=== PATIENT | female | born 1990 | race Caucasian/White ===

== ENCOUNTER 2016-10-02 17:10 | Emergency (ER) | payer OTHER ==
[2016-10-02] MEDS ORDERED: Lidocaine/Epineph/Tetraca SOL* (LET solution) 4 ML BTL TOPICAL ONE (19:52)
[2016-10-02] MEDS ORDERED: Ibuprofen TAB* 600 MG PO ONE (19:52)
--- NOTE | 2016-10-02 20:06 | ED ---
Head Injury - HPI Summary HPI Summary: Pt here w/ forehead injury - lac w/ bump. Was playing soccer earlier today and collided heads with another player. Had abrupt yet brief nausea which passed after a few seconds. Denies LOC, change in vision, vomiting, neck pain, dental pain, numbness, tingling, weakness, syncope. H/o concussion and she does not have any of those sx today - just came in to get checked and have wound repaired as necessary. Imms are UTD. No other injuries to report. Has not tried anything for injury yet. - History Of Current Complaint Chief Complaint: EDLacSutureRecheck Stated Complaint: FOREHEAD LAC/HEAD INJURY Time Seen by Provider: 10/02/16 19:25 Hx Obtained From: Patient Hx Last Menstrual Period: 08/13/14 Pain Intensity: 4 - Allergies/Home Medications Allergies/Adverse Reactions: Allergies Allergy/AdvReac Type Severity Reaction Status Date / Time No Known Allergies Allergy Unverified 08/25/14 09:18 PMH/Surg Hx/FS Hx/Imm Hx Previously Healthy: Yes Endocrine/Hematology History: Denies: Hx Anticoagulant Therapy, Hx Blood Disorders, Hx Diabetes, Hx Thyroid Disease Cardiovascular History: Denies: Hx Hypertension Respiratory History: Reports: Hx Asthma - Exercise induced Denies: Hx Chronic Obstructive Pulmonary Disease (COPD) GI History: Denies: Hx Ulcer Neurological History: Reports: Other Neuro Impairments/Disorders - h/o concussions - no residual effects Infectious Disease History: No Infectious Disease History: Denies: Hx Hepatitis, Hx Human Immunodeficiency Virus (HIV), History Other Infectious Disease, Traveled Outside the [place] in Last 30 Days - Social History Lives: With Family Alcohol Use: None Hx Substance Use: No Substance Use Type: Reports: None Hx Tobacco Use: No Smoking Status (MU): Never Smoked Tobacco Review of Systems Constitutional: Negative Negative: Fatigue Eyes: Negative Negative: Photophobia, Blurred Vision, Diplopia ENT: Negative Negative: Dental Pain Negative: Chest Pain Negative: Shortness Of Breath Gastrointestinal: Negative Positive: no symptoms reported Musculoskeletal: Negative Skin: Other - see HPI Positive: Headache - focal pain over area of insult Psychological: Normal All Other Systems Reviewed And Are Negative: Yes Physical Exam Triage Information Reviewed: Yes Vital Signs On Initial Exam: Initial Vitals Temp Pulse Resp BP Pulse Ox 98.1 F 65 18 116/72 100 10/02/16 17:16 10/02/16 17:16 10/02/16 17:16 10/02/16 17:16 10/02/16 17:16 Vital Signs Reviewed: Yes Appearance: Positive: Well-Appearing, No Pain Distress, Well-Nourished Skin: Positive: Warm, Dry - scabbed, linear lac over dentral forehead on a small quarter sized hematoma - clean and no bleeding Head/Face: Positive: Other - see above - otherwise normal; no battlesign Eyes: Positive: Normal, EOMI, MARIFER, Conjunctiva Clear ENT: Positive: Normal ENT inspection, Hearing grossly normal, Pharynx normal, TMs normal Dental: Negative: Dental Fracture @ Neck: Positive: Supple, Nontender Respiratory/Lung Sounds: Positive: Breath Sounds Present Cardiovascular: Positive: Normal Musculoskeletal: Positive: Normal, Strength/ROM Intact Neurological: Positive: Normal, Sensory/Motor Intact, Alert, Oriented to Person Place, Time, CN Intact II-III Psychiatric: Positive: Normal Procedures - Laceration/Wound Repair 1 Location: face - central forehead Description: Linear Anesthesia: Local, Lido, Epi Length, Depth and Shape: 1.5cm x 2mm Betadine Prep?: No Laceration/Wound Explored: clean Closure: Skin Adhesive, SteriStrips Layer Closure?: No Sterile Dressing Applied?: Yes - steripstrips + dermabond Diagnostics - Vital Signs Vital Signs Temp Pulse Resp BP Pulse Ox 10/02/16 19:16 98.1 F 65 18 116/72 100 10/02/16 17:16 98.1 F 65 18 116/72 100 - Laboratory Lab Statement: Any lab studies that have been ordered have been reviewed, and results considered in the medical decision making process. Head Injury Course/Dx - Diagnoses Provider Diagnoses: Facial contusion, Forehead laceration Discharge - Discharge Plan Condition: Stable Disposition: HOME Patient Education Materials: Facial Laceration (ED), Steristrips (ED), Skin Adhesive Care (ED), Facial Contusion (ED) Referrals: Brittney Angel MD [Primary Care Provider] - Additional Instructions: Keep wound dressing clean, dry and intact for 5 days. Do not remove steri strips as they will fall off on their own. Follow-up with PCP for wound recheck in 5 days. Call Wednesday to schedule an appointment. Monitor for redness, swelling, purulent drainage, fever, chills - if present, seek medical attention sooner. For contusion, apply ice and take ibuprofen with food *If you develop concussion symptoms, follow-up with PCP or return to ED
[2016-10-02 21:17] VITALS: BP 103/61
== END 2016-10-02 21:16 | disposition home or self-care (01) ==
LOC: ED 17:10
DX: S01.81XA Laceration without foreign body of other part of head, initial encounter (principal); S00.83XA Contusion of other part of head, initial encounter; W50.0XXA Accidental hit or strike by another person, initial encounter; Y93.66 Activity, soccer; Y92.9 Unspecified place or not applicable
CPT/HCPCS: 12011; 99282; A9270-GY